=== PATIENT | male | born 1965 | race Caucasian/White ===

== ENCOUNTER 2020-05-31 13:13 | Emergency (ER) | payer BC, SELFPAY ==
--- NOTE | 2020-05-31 13:29 | PC.NURSE ---
Shamar from [facility] office contacted. Will come see pt in ed.
--- NOTE | 2020-05-31 14:35 | PC.NURSE ---
1309 - Patient arrives by [facility] due to found down in a house by other people present in the house who reported hearing a loud boom then calling 911. Per EMS patient was in PEA with no pulse with agonal breathing upon their arrival, EMS initiated CPR/ACLS and intubated patient with 7.0 ETT. Per EMS patient has bleeding wound to posterior head as well as a large, open wound to right arm. EMS administered epi x3 in the field. 1311 - See code sheet for all code documentation and medications. 1430 - Large open wound to right arm noted with irregular borders, tunneling, multiple colors, large lesion attached to wound, serosanguineous drainage - measured approximately 3 inches x6 inches in size by SARAH Geiger. Multiple various sized brown lesions on patient's arms, legs, torso, abdomen, and chest noted.
--- NOTE | 2020-05-31 14:40 | ED_ITS ---
HPI - CPR General Chief Complaint: Cardiac Arrest/CPR Stated Complaint: code Time Seen by Provider: 05/31/20 13:30 Source: EMS Mode of arrival: EMS Limitations: clinical condition History of Present Illness HPI narrative: A 55-year-old male comes into the emergency department today with EMS after he allegedly collapsed. Per EMS patient was doing some light manual labor, collapsed and 911 was called. They state when they arrived the patient was pulseless and found to be in PEA. They did administer a few rounds of epinephrine in route. Patient did not ever achieve ROSC. Further history is unavailable at this time. Review of Systems Review of Systems: ROS unobtainable: Yes unobtainable due to medical condition Exam Narrative: Exam Narrative: GENERAL: Active chest compressions, cyanotic and mottled. HEAD: Small abrasion noted to the posterior occipital scalp. EYES: Fixed and dilated. ENT: Nares clear, no rhinorrhea or epistaxis. ET tube in place. NECK: Supple. No adenopathy or masses. No carotid bruits or JVD CHEST: Chinmay device doing active compressions HEART: PEA, pulseless. ABDOMEN: Distended. EXTREMITIES: Large abnormal lesion noted on the right forearm. SKIN: Cool and mottled. NEURO: Unresponsive PSYCH: Unresponsive is a. MDM - Cardiac Arrest/CPR MDM Narrative Medical decision making narrative: In brief this 55-year-old male came into the emergency department today as a cardiac arrest. Unfortunately despite best efforts the patient did . After approximately 40 minutes of ACLS protocol the patient had a bedside ultrasound performed by myself. There was no cardiac motion, ventricular swirling was noted on ultrasound. At this point I asked staff present in the room if anyone had any suggestions, at that time there were none. The patient's TOD was called at 1318. After family later arrived we did learn that the patient had an extensive family cardiac history. Both of his parents had sudden cardiac related to heart attacks. It was known that his father in his mid 50s secondary to a heart attack, the patient also had a brother in his mid 30s secondary to a heart attack. Critical Care Time Critical Care Time Critical Care Time: Yes (Cardiac arrest, time includes speaking with family, corner and treatment) Total Critical Care Time: 65 Discharge Plan Discharge Clinical Impression: Cardiac arrest Patient Disposition: Condition: Follow-up/Referrals: PHYSICIAN,PASTE MIXING SUPERVISOR [Primary Care Provider] -
--- NOTE | 2020-05-31 15:30 | PC.NURSE ---
Donald - SARAH Geiger gave wallet and patient's socks in belongings bag to patient's . calling back with home information.
== END 2020-05-31 16:00 | disposition expired ==
PROVIDERS: Emergency Provider Emergency Medicine
DX: I46.9 Cardiac arrest, cause unspecified (principal)
CPT/HCPCS: 92950; 99285; J0171